=== PATIENT | male | born 1960 | race Two or more races ===

== ENCOUNTER 2021-01-29 00:04 | Emergency (ER) | payer OTHER ==
[2021-01-29 00:40] VITALS: BP 169/100; PULSE 87; TEMP 98; BMI 26.6
[2021-01-29] MEDS ORDERED: KETOROLAC TROMETHAMINE 30 MG/1 ML VIAL IVPUSH ONE (00:47)
[2021-01-29] MEDS ORDERED: ONDANSETRON 4 MG/2 ML VIAL IVPUSH ONE (00:50)
[2021-01-29] MEDS ORDERED: KETOROLAC TROMETHAMINE 30 MG/1 ML VIAL ONE (00:53)
[2021-01-29] MEDS ORDERED: ONDANSETRON 4 MG/2 ML VIAL ONE (00:53)
[2021-01-29 01:26] LABS: BASO % 0.1 % (0-2.0); EOS % 1.9 % (0-4.5); HEMATOCRIT 42.8 % (35.4-49); HEMOGLOBIN 14.5 GM/dL (11.7-16.9); LYMPH % 19.5 % (8-40); MCH 27.9 pg (25.7-33.7); MEAN CELL VOLUME 81.9 fl (80-96); MEAN PLT VOLUME 8.7 fl (7.5-11.1); MONO % 8.9 % (3.8-10.2); NEUT % 69.6 % (42.8-82.8); PLATELET COUNT 120 10^3/uL (134-434); RBC 5.22 M/mm3 (4.00-5.60); RDW 13.7 % (11.9-15.9); WHITE BLOOD COUNT 8.7 K/mm3 (4.0-10.0)
[2021-01-29 01:51] LABS: CALCIUM 8.3 mg/dL (8.5-10.1)
[2021-01-29 01:52] LABS: ALBUMIN 4.1 g/dl (3.4-5.0); BLOOD UREA NITROGEN 21.6 mg/dL (7-18)
[2021-01-29 01:55] LABS: CREATININE 1.2 mg/dL (0.55-1.3)
[2021-01-29 01:56] LABS: TOT PROT 7.9 g/dl (6.4-8.2)
[2021-01-29 02:05] LABS: BILIRUBIN,TOTAL 0.6 mg/dL (0.2-1)
[2021-01-29] MEDS ORDERED: SODIUM CHLORIDE 0.9% 500 ML INFUS.BAG IV ONE (02:09)
[2021-01-29 03:40] LABS: EPI CELLS 1 /uL (0-25.1); HYALINE CASTS 0 /uL (0-3.1); PH,URINE 7.5 (5.0-8.0); URINE APPEARANCE CLEAR; URINE BACTERIA 5 /uL (0-1359); URINE BILIRUBIN NEGATIVE (NEGATIVE); URINE COLOR YELLOW; URINE GLUCOSE (UA) NEGATIVE (NEGATIVE); URINE KETONE 1+ (NEGATIVE); URINE LEUK ESTERASE NEGATIVE (NEGATIVE); URINE NITRITE NEGATIVE (NEGATIVE); URINE PROTEIN NEGATIVE (NEGATIVE); URINE RBC 150 /uL (0-23.9); URINE UROBILINOGEN 0.2 mg/dL (0.2-1.0); URINE WBC 2 /uL (0-25.8)
== END 2021-01-29 05:12 | disposition home or self-care (01) ==
LOC: JER 00:04
PROC: 3E0333Z Introduction of Anti-inflammatory into Peripheral Vein, Percutaneous Approach (ICD-10-PCS; principal; 2021-01-29)
PROC: 3E033GC Introduction of Other Therapeutic Substance into Peripheral Vein, Percutaneous Approach (ICD-10-PCS; 2021-01-29)
DX: N20.0 Calculus of kidney (principal)
CPT/HCPCS: 36415; 74177-TC; 76870-TC; 80053; 81003; 85025; 87086; 99285-25

== ENCOUNTER 2021-06-25 15:46 | Emergency (ER) | payer OTHER ==
[2021-06-25 16:15] VITALS: BP 132/88; PULSE 78; TEMP 98.3; BMI 30.2
[2021-06-25] MEDS ORDERED: FAMOTIDINE 20 MG/50 ML IVPB 20 MG/50 ML MG IVPB ONE ×2 (17:36→17:59)
[2021-06-25] MEDS ORDERED: MAG HYDROX/AL HYDROX/SIMETH -MYLANTA- ORAL SUSPENSION PO ONE (17:36)
[2021-06-25] MEDS ORDERED: METOCLOPRAMIDE HCL INJECTION 10 MG/2 ML VIAL IVPUSH ONE (17:38)
[2021-06-25] MEDS ORDERED: METOCLOPRAMIDE HCL INJECTION 10 MG/2 ML VIAL ONE (17:59)
[2021-06-25] MEDS ORDERED: MAG HYDROX/AL HYDROX/SIMETH 30 ML UNIT-DOSE CUP ONE (17:59)
[2021-06-25 18:19] LABS: BASO % 0.6 % (0-2.0); EOS % 0.7 % (0-4.5); HEMATOCRIT 43.3 % (35.4-49); HEMOGLOBIN 14.4 GM/dL (11.7-16.9); LYMPH % 10.3 % (8-40); MCHC 33.2 g/dl (32.0-35.9); MEAN CELL VOLUME 81.2 fl (80-96); MEAN PLT VOLUME 8.7 fl (7.5-11.1); MONO % 21.2 % (3.8-10.2); NEUT % 67.2 % (42.8-82.8); PLATELET COUNT 112 10^3/uL (134-434); RBC 5.33 M/mm3 (4.00-5.60); WHITE BLOOD COUNT 3.6 K/mm3 (4.0-10.0)
[2021-06-25 18:39] LABS: CHLORIDE 100 mmol/L (98-107); SODIUM 133 mmol/L (136-145)
[2021-06-25 18:42] LABS: CALCIUM 8.5 mg/dL (8.5-10.1)
[2021-06-25 18:43] LABS: ALBUMIN 3.9 g/dl (3.4-5.0); ANION GAP 5 MMOL/L (8-16); BLOOD UREA NITROGEN 12.3 mg/dL (7-18); CO2 27 mmol/L (21-32); GLUCOSE,RANDOM 138 mg/dL (74-106); LIPASE 34 U/L (73-393)
[2021-06-25 18:45] LABS: CREATININE 0.8 mg/dL (0.55-1.3)
[2021-06-25 18:46] LABS: SGOT/AST 18 U/L (15-37); SGPT/ALT 36 U/L (13-61)
[2021-06-25 18:47] LABS: BILIRUBIN,TOTAL 0.5 mg/dL (0.2-1); TOT PROT 7.8 g/dl (6.4-8.2)
[2021-06-25 18:48] LABS: ALK PHOS 80 U/L (45-117)
[2021-06-25] MEDS ORDERED: ACETAMINOPHEN 1000 MG/100 ML BAG IVPB ONE (20:52)
[2021-06-25] MEDS ORDERED: ACETAMINOPHEN INJECTION 100 ML IVPB ONE (20:58)
== END 2021-06-25 21:48 | disposition home or self-care (01) ==
LOC: JER 15:46
PROC: 3E0333Z Introduction of Anti-inflammatory into Peripheral Vein, Percutaneous Approach (ICD-10-PCS; principal; 2021-06-25)
PROC: 3E033GC Introduction of Other Therapeutic Substance into Peripheral Vein, Percutaneous Approach (ICD-10-PCS; 2021-06-25)
PROC: 3E033GC Introduction of Other Therapeutic Substance into Peripheral Vein, Percutaneous Approach (ICD-10-PCS; 2021-06-25)
DX: U07.1 COVID-19 (principal); R51.9 Headache, unspecified
CPT/HCPCS: 36415; 70450-TC; 80053; 82550; 83690; 84484; 85025; 93005; 93010; 99285-25; C9803-CS; U0003; U0005

== ENCOUNTER 2021-07-03 10:57 | Emergency (ER) | payer OTHER ==
[2021-07-03 11:20] VITALS: BMI 27.2
[2021-07-03] MEDS ORDERED: ACETAMINOPHEN 325 MG TABLET (FP) PO ONE (11:46)
[2021-07-03] MEDS ORDERED: MECLIZINE HCL 12.5 MG TABLET PO ONE (11:46)
[2021-07-03] MEDS ORDERED: SODIUM CHLORIDE 1,000 ML IV STA (11:46)
[2021-07-03] MEDS ORDERED: ACETAMINOPHEN 325 MG TABLET (FP) ONE (11:54)
[2021-07-03] MEDS ORDERED: MECLIZINE HCL 12.5 MG TABLET ONE (11:54)
[2021-07-03 13:05] LABS: BASO % 0.2 % (0-2.0); EOS % 0.6 % (0-4.5); HEMATOCRIT 44.4 % (35.4-49); HEMOGLOBIN 14.9 GM/dL (11.7-16.9); LYMPH % 31.6 % (8-40); MCHC 33.7 g/dl (32.0-35.9); MEAN CELL VOLUME 80.1 fl (80-96); MEAN PLT VOLUME 8.5 fl (7.5-11.1); MONO % 14.1 % (3.8-10.2); NEUT % 53.5 % (42.8-82.8); PLATELET COUNT 92 10^3/uL (134-434); RBC 5.54 M/mm3 (4.00-5.60); RDW 13.3 % (11.9-15.9); WHITE BLOOD COUNT 2.8 K/mm3 (4.0-10.0)
[2021-07-03 13:26] LABS: CHLORIDE 103 mmol/L (98-107); SODIUM 136 mmol/L (136-145)
[2021-07-03 13:28] LABS: CALCIUM 8.6 mg/dL (8.5-10.1)
[2021-07-03 13:29] LABS: ALBUMIN 3.5 g/dl (3.4-5.0); ANION GAP 6 MMOL/L (8-16); BLOOD UREA NITROGEN 14.5 mg/dL (7-18); CO2 27 mmol/L (21-32); GLUCOSE,RANDOM 138 mg/dL (74-106)
[2021-07-03 13:32] LABS: CREATININE 0.9 mg/dL (0.55-1.3); SGOT/AST 25 U/L (15-37); SGPT/ALT 51 U/L (13-61)
[2021-07-03 13:34] LABS: BILIRUBIN,TOTAL 0.6 mg/dL (0.2-1); TOT PROT 7.5 g/dl (6.4-8.2)
[2021-07-03 13:35] LABS: ALK PHOS 88 U/L (45-117)
[2021-07-03 16:17] VITALS: BP 126/78; PULSE 78; TEMP 98.5
== END 2021-07-03 16:20 | disposition home or self-care (01) ==
LOC: JER 10:57
DX: U07.1 COVID-19 (principal); E86.0 Dehydration; R55 Syncope and collapse
CPT/HCPCS: 36415; 70450-TC; 71046-TC-FY; 80053; 82550; 82962; 84484; 85025; 93005; 93010; 99284-25

== ENCOUNTER 2022-08-06 04:24 | Day surgery (SDC) | payer OTHER ==
[2022-08-05 11:34] VITALS: BMI 30.3
[2022-08-06 12:01] VITALS: BP 115/70; PULSE 58; RESP 15
[2022-08-06 13:52] VITALS: TEMP 97.5
== END 2022-08-06 11:50 | disposition home or self-care (01) ==
LOC: JASU-ENDO 04:24
PROVIDERS: ATTEND Internal Medicine Gastroenterology
PROC: 0DBP8ZX Excision of Rectum, Via Natural or Artificial Opening Endoscopic, Diagnostic (ICD-10-PCS; principal; 2022-08-06 10:00)
DX: Z12.11 Encounter for screening for malignant neoplasm of colon (principal); D12.8 Benign neoplasm of rectum; K64.8 Other hemorrhoids
CPT/HCPCS: 88305-TC